=== PATIENT | male | born 1965 | race Caucasian/White ===

== ENCOUNTER 2022-10-31 15:25 | Outpatient (CLI) | payer BC, SELFPAY ==
--- NOTE | 2022-11-03 13:51 | WPDHOLTEREM ---
Holter/Event Monitor Holter/Event Monitor Date of procedure: 10/31/22 Holter/Event Procedure: 48 Hr Holter Monitor Conclusion: 1. 48 hour holter monitor on 10/31/22. 2. Underlying rhythm is sinus rhythm. HR range 47-117 bpm; average HR 72 bpm. 3. There are 17 premature supraventricular complexes and 1 supraventricular couplet. No supraventricular tachycardia. 4. No premature ventricular complexes. No ventricular tachycardia. 5. No sinoatrial or atrioventricular blocks. No significant pauses greater than 2 seconds. 6. No symptoms available for correlation.
== END 2022-10-31 15:26 | disposition home or self-care (01) ==
LOC: ANHCARD 15:26
PROVIDERS: Visit Provider Nurse Practitioner Adult Health
DX: R00.2 Palpitations (principal)
CPT/HCPCS: 93225; 93226